=== PATIENT | male | born 1990 | race African-American/Black ===

== ENCOUNTER 2023-08-18 02:50 | Emergency (ER) | payer OTHER ==
[~2023-08-18] VITALS: Ht 172.7 cm; Wt 61.2 kg
[2023-08-18 02:54] VITALS: BP 107/47; PULSE 105; RESP 20; TEMP 96.1; O2SAT 99
[2023-08-18 03:17] VITALS: BP 107/47; PULSE 105; RESP 20; TEMP 96.1; O2SAT 99
== END 2023-08-18 03:17 ==
LOC: MED 02:50
DX: Z02.89 Encounter for other administrative examinations (principal); R00.0 Tachycardia, unspecified; F15.90 Other stimulant use, unspecified, uncomplicated
CPT/HCPCS: 99283